=== PATIENT | female | born 1985 | race Caucasian/White ===

== ENCOUNTER 2020-12-16 00:38 | Inpatient (IN) | payer OTHER ==
[~2020-12-16] VITALS: Ht 167.6 cm; Wt 58.5 kg
--- NOTE | 2020-12-16 00:55 | NUR ---
BIBRA FROM HOME FOR C/O FEVER, CHILLS, N/V/D, BACK AND NACK PAIN AND URIANRY FREQUENCY X 3 DAYS. VACCINATED FOR COVID X 2 AND REPORTED TESTED - FOR COVID 3 DAYS AGO. AMBULATORY TO THE BATHROOM. URINE SAMPLE OBTAINED, PT WAS PLACED IN BED 7 ER, ISOLATION PRECAUTION IMPLEMENTED. PLACED PT ON MONITOR. WILL CONT TO MONITOR
[2020-12-16] MEDS ORDERED: ONDANSETRON HCL/PF 4 MG/2 ML VIAL IVP ONE (01:00)
[2020-12-16] MEDS ORDERED: IV NS 0.9% 1,000 ML BAG IV ONE (01:00)
[2020-12-16] MEDS ORDERED: KETOROLAC TROMETHAMINE INJ 30 MG/ML VIAL IV ONE (01:00)
[2020-12-16] MEDS ORDERED: KETOROLAC TROMETHAMINE INJ 30 MG/ML VIAL ONE (01:08)
[2020-12-16] MEDS ORDERED: ONDANSETRON HCL/PF 4 MG/2 ML VIAL ONE (01:08)
[2020-12-16] MEDS ORDERED: ACETAMINOPHEN ES 500 MG TABLET ONE (01:08)
[2020-12-16 01:09] LABS: BASOPHILS % (AUTO) 0.2 % (0.0-2.0); HEMATOCRIT 36 % (33-45); HEMOGLOBIN 12.3 g/dL (11.5-14.8); LYMPHOCYTES # (AUTO) 0.3 K/uL (0.8-4.8); LYMPHOCYTES % (AUTO) 1.7 % (20.0-44.0); MEAN CORPUSCULAR HGB CONC 34 g/dl (31.0-36.0); MEAN CORPUSCULAR VOLUME 92 fL (82-100); MONOCYTES # (AUTO) 1.8 K/uL (0.1-1.30); MONOCYTES % (AUTO) 9.8 % (2.0-12.0); NEUTROPHILS # (AUTO) 15.9 K/uL (1.8-8.9); NEUTROPHILS % (AUTO) 88.3 % (43.0-81.0); PLATELET COUNT (AUTO) 130 K/uL (150-450); RED BLOOD CELL COUNT(AUTO) 3.94 MIL/uL (4.0-5.2)
--- NOTE | 2020-12-16 01:10 | NUR ---
BLOOD WORK AND COVID SWABS TAKEN AND SENT TO LAB.
[2020-12-16 01:16] LABS: BILIRUBIN,URINE Negative (NEGATIVE); COLOR,URINE ORANGE (YELLOW); LEUKOCYTE ESTERASE ,URINE Negative (NEGATIVE); NITRITE, URINE Negative (NEGATIVE); PROTEIN,URINE >=300 mg/dl (NEGATIVE); UGLUCOSE Negative (NEGATIVE); UROBILINOGEN,URINE 0.2 EU/dL (0.2)
[2020-12-16 01:24] LABS: BILIRUBIN,DIRECT 0.1 mg/dL (0.0-0.2); BILIRUBIN,TOTAL 0.3 mg/dL (0.2-1.0); CALCIUM, SERUM 8.7 mg/dL (8.5-10.1); CREATININE 1.2 mg/dL (0.6-1.3); POTASSIUM 3.4 mmol/L (3.5-5.1); TOTAL PROTEIN, SERUM 7.6 g/dL (6.4-8.2)
[2020-12-16] MEDS ORDERED: ACETAMINOPHEN 325 MG TABLET PO ONE (01:30)
--- NOTE | 2020-12-16 01:30 | NUR ---
PT WENT TO CT
[2020-12-16 01:33] LABS: BACTERIA,URINE Many /HPF (None Seen); SQUAMOUS EPITHELIAL CELL,UR Few /HPF (None Seen)
--- NOTE | 2020-12-16 01:35 | NUR ---
PT BACK FROM CT
--- NOTE | 2020-12-16 02:11 | NUR ---
FLEET SALES MANAGER AT BEDSIDE FOR BLOOD CULTRES.
[2020-12-16] MEDS ORDERED: LEVOFLOXACIN 750 MG /D5W 150ML PIGGYBACK IV ONE (02:30)
--- NOTE | 2020-12-16 03:24 | NUR ---
REPORT GIVEN TO JESÚS SEBASTIAN
--- NOTE | 2020-12-16 03:51 | NUR ---
PT TRANSFERRED TO 106
[2020-12-16 04:00] VITALS: BP 94/58
[2020-12-16] MEDS ORDERED: ZOLPIDEM TARTRATE 5 MG TABLET PO PRN (04:00)
[2020-12-16] MEDS ORDERED: LEVOFLOXACIN 500 MG /D5W 100ML 500 MG in PREMIX 1 EA IV SCH (04:00)
[2020-12-16] MEDS ORDERED: ONDANSETRON HCL/PF 4 MG/2 ML VIAL IVP PRN (04:00)
[2020-12-16] MEDS ORDERED: Z GUARD REMEDY 2 OZ OINT TP PRN (04:00)
[2020-12-16] MEDS ORDERED: MAG HYDROX/AL HYDROX/SIMETH 30 ML UDC PO PRN (04:00)
[2020-12-16] MEDS ORDERED: MAGNESIUM HYDROXIDE 30 ML UDC PO PRN (04:00)
[2020-12-16] MEDS: IV NS 0.9% 1,000 ML IV PRN ×3 (04:24→16:50)
--- NOTE | 2020-12-16 06:24 | NUR ---
MS RN NOTES AWAKE & RESPONSIVE. NOT IN ANY DISTRESS. NO SOB NOTED. DENIES ANY PAIN OR DISCOMFORT AT THIS TIME. WITH IVF INFUSING WELL. MONITORED ACCORDINGLY. CALL LIGHT WITHIN REACH. BED IN LOWEST POSITION. SR UP X 2 FOR SAFETY. WILL ENDORSE TO NEXT SHIFT.
[2020-12-16] MEDS ORDERED: PANTOPRAZOLE 40 MG TABLET.DR PO SCH (07:30)
--- NOTE | 2020-12-16 07:30 | NUR ---
MS RN AM NOTES PT IN BED, AWAKE & RESPONSIVE. NOT IN ANY DISTRESS. ON ROOM AIR.NO SOB NOTED. DENIES ANY PAIN OR DISCOMFORT AT THIS TIME. WITH IVF INFUSING WELL. REGULAR DIET. BRP PRIVILEGED, CALL LIGHT WITHIN REACH. BED IN LOWEST POSITION. SR UP X 2 FOR SAFETY. POC DISCUSSED, VERBALIZED UNDERSTANDING. WILL CONTINUE TO MONITOR
[2020-12-16 08:00] VITALS: BP 92/64
[2020-12-16] MEDS ORDERED: POTASSIUM CHLORIDE 20 MEQ TAB.PRT.SR PO SCH (09:30)
--- NOTE | 2020-12-16 09:30 | NUR ---
RN NOTES DUE MEDS GIVEN
[2020-12-16 09:48] LABS: BASOPHILS % (AUTO) 0.4 % (0.0-2.0); HEMATOCRIT 34 % (33-45); HEMOGLOBIN 11.4 g/dL (11.5-14.8); LYMPHOCYTES # (AUTO) 0.6 K/uL (0.8-4.8); LYMPHOCYTES % (AUTO) 4.8 % (20.0-44.0); MEAN CORPUSCULAR HGB CONC 33 g/dl (31.0-36.0); MEAN CORPUSCULAR VOLUME 93 fL (82-100); MONOCYTES # (AUTO) 1.2 K/uL (0.1-1.30); MONOCYTES % (AUTO) 9.8 % (2.0-12.0); NEUTROPHILS # (AUTO) 10.4 K/uL (1.8-8.9); PLATELET COUNT (AUTO) 98 K/uL (150-450); RED BLOOD CELL COUNT(AUTO) 3.64 MIL/uL (4.0-5.2); WHITE BLOOD COUNT (AUTO) 12.2 K/uL (4.3-11.0)
[2020-12-16 10:28] LABS: LYMPHOCYTES % (MANUAL) 4 % (16-48); MONOCYTES % (MANUAL) 6 % (0-11.0); NEUTROPHILS % (MANUAL) 90 (42-76)
[2020-12-16] MEDS ORDERED: POTASSIUM CHLORIDE 20 MEQ TAB.PRT.SR PO ONE (11:00)
--- NOTE | 2020-12-16 13:24 | NUR ---
RN NOTES PT WITH ELEVATED TEMP AT 102.9, NAUSEOUS AND ANXIOUS. DR. LYNN NOTIFIED, JUST GIVE TYLENOL AND ZOFRAN IV. BP 106/61 O2 SAT 100%
[2020-12-16] MEDS: ACETAMINOPHEN 325 MG TABLET PO PRN (13:30)
--- NOTE | 2020-12-16 14:30 | NUR ---
RN NOTES TEMPERATURE RECHECKED, NOW 98.6. NO NAUSEA/VOMITING.
[2020-12-16 16:00] VITALS: BP 90/59
--- NOTE | 2020-12-16 18:14 | NUR ---
MS RN CLOSING NOTES PT RESTING IN BED, AWAKE & RESPONSIVE. NOT IN ANY DISTRESS. ON ROOM AIR.NO SOB NOTED. DENIES ANY PAIN OR DISCOMFORT AT THIS TIME. WITH IVF INFUSING WELL. REGULAR DIET. BRP, CALL LIGHT WITHIN REACH. BED IN LOWEST POSITION. SR UP X 2 FOR SAFETY. ALL NEEDS MET FOR NOW. SAFETY MEASURES IN PLACE, BED LOW LOCKED, ISOLATION PRECAUTIONS OBSERVED. CALL LIGHT WITHIN REACH. WILL ENDORSE TO NEXT SHIFT FOR JOCELYN.
--- NOTE | 2020-12-16 19:30 | NUR ---
RN OPENING NOTES: RECEIVED PT A/OX4 IN BED RESTING COMFORTABLY. PATIENT IN NO S/SX OF ACUTE DISTRESS AT THIS TIME. NO SOB NOTED. PATIENT'S BREATHING IS EVEN AND UNLABORED. PATIENT IS ON ROOM AIR; TOLERATING WELL WITH 02 SAT >95%. PATIENT ON REGULAR DIET; TOLERATES WELL. NOTED IV SITE ON L AC#20; PATENT, INTACT AND FLUSHING WELL; NO S/S OF INFECTION OR INFILTRATION. WITH IV FLUID RUNNING ORDERED.SAFETY MEASURES HAVE BEEN PROVIDED AND IMPLEMENTED. PATIENT BED ALARM IS ON. HEAD OF BED ELEVATED. BED IS LOCKED, IN LOWEST POSITION AND SIDE RAILS UP. CALL LIGHT WITHIN REACH OF THE PATIENT. APPLICABLE ISOLATION PRECAUTIONS IN PLACE. WILL CONTINUE TO MONITOR AND REASSESS FOR ANY CHANGES AND WILL CARRY OUT ANY ONGOING AND ACTIVE MD ORDER.
[2020-12-16 20:00] VITALS: BP 89/57
--- NOTE | 2020-12-16 20:30 | NUR ---
RN NOTES NOTED PT'S BP FOR 1999 IS AT 89/57, AND CHECKING BASELINE BP FOR TODAY PT'S SBP IS AT LOW 90s. NELSON DIAZ INFORMED AND SECURED ORDER FOR NS BOLUS 500 IV ONE TIME. BOX WORKER MADE AWARE. WILL CARRY OUT ORDERED. Addendum: 12/16/20 at 2208 by HILARIO WHIPPLE RN @2130 pt's bp is at 90/63. WILL CONTINUE TO ASSESS AND MONITOR THROUGHOUT THE SHIFT.
[2020-12-16] MEDS ORDERED: IV NS 0.9% 500 ML IV ONE (21:00)
[2020-12-16 21:30] VITALS: BP 90/63
[2020-12-17] MEDS: LEVOFLOXACIN 500 MG /D5W 100ML 500 MG in PREMIX 1 EA IV SCH (02:56)
[2020-12-17 04:00] VITALS: BP 89/57
[2020-12-17] MEDS: ACETAMINOPHEN 325 MG TABLET PO PRN ×2 (04:28→16:02)
[2020-12-17] MEDS: IV NS 0.9% 1,000 ML IV PRN ×2 (05:00→18:24)
[2020-12-17 06:01] LABS: BASOPHILS % (AUTO) 0.1 % (0.0-2.0); EOSINOPHILS % (AUTO) 0.1 % (0.0-6.0); HEMATOCRIT 31 % (33-45); HEMOGLOBIN 10.6 g/dL (11.5-14.8); LYMPHOCYTES # (AUTO) 1.1 K/uL (0.8-4.8); LYMPHOCYTES % (AUTO) 11.2 % (20.0-44.0); MEAN CORPUSCULAR HGB CONC 35 g/dl (31.0-36.0); MEAN CORPUSCULAR VOLUME 93 fL (82-100); MONOCYTES # (AUTO) 1.5 K/uL (0.1-1.30); MONOCYTES % (AUTO) 16.2 % (2.0-12.0); NEUTROPHILS # (AUTO) 6.8 K/uL (1.8-8.9); NEUTROPHILS % (AUTO) 72.4 % (43.0-81.0); PLATELET COUNT (AUTO) 100 K/uL (150-450); RED BLOOD CELL COUNT(AUTO) 3.31 MIL/uL (4.0-5.2); WHITE BLOOD COUNT (AUTO) 9.4 K/uL (4.3-11.0)
--- NOTE | 2020-12-17 06:40 | NUR ---
RN CLOSING NOTE: PATIENT REMAINS IN ROOM IN NO SIGNS OF RESPIRATORY DISTRESS, PATIENT ON ROOM AIR ;TOLERATING WELL SATURATING @ >95% SP02. SAFETY MEASURES IMPLEMENTED, BED IN LOWEST POSITION, LOCKED, SIDE RAILS UP, CALL LIGHT WITHIN REACH. ALL NEEDS AND ORDERS ADDRESSED DURING THE SHIFT. IV ACCESS MAINTAINED INTACT, SECURED AND FLUSHING WELL. ALL DUE MEDS GIVEN ORDERED & SCHEDULED ; PATIENT TOLERATED WELL. PATIENT KEPT CLEAN & COMFORTABLE WITHIN THE SHIFT. PATIENT ENDORSED TO INCOMING SHIFT RN WITH STABLE VITAL SIGN AND FOR CONTINUITY OF CARE.
[2020-12-17 06:42] LABS: CALCIUM, SERUM 7.7 mg/dL (8.5-10.1); CARBON DIOXIDE 22 mmol/L (21-32); CHLORIDE 106 mmol/L (98-107); CREATININE 0.9 mg/dL (0.6-1.3); GLUCOSE 110 mg/dL (74-106); MAGNESIUM 1.9 mg/dL (1.8-2.4); PHOSPHORUS 1.9 mg/dL (2.5-4.9); SODIUM SERUM 136 mmol/L (136-145); UREA NITROGEN, BLOOD 7 mg/dL (7-18)
[2020-12-17 06:45] LABS: CHOLESTEROL 90 mg/dL (<200); LDL 33 mg/dL (0-99); TRIGLYCERIDES 209 mg/dL (30-150)
[2020-12-17 06:48] LABS: HDL CHOLESTEROL < 10 mg/dL (40-60)
[2020-12-17 08:00] VITALS: BP 104/72
--- NOTE | 2020-12-17 09:30 | NUR ---
RN NOTES DUE MEDS GIVEN
[2020-12-17] MEDS ORDERED: K PHOS NEUTRAL 250 MG TABLET PO ONE (10:00)
[2020-12-17 11:14] LABS: LYMPHOCYTES % (MANUAL) 9 % (16-48); MONOCYTES % (MANUAL) 17 % (0-11.0); NEUTROPHILS % (MANUAL) 74 (42-76)
[2020-12-17 12:00] VITALS: BP 114/79
[2020-12-17 16:00] VITALS: BP 119/73
--- NOTE | 2020-12-17 18:38 | NUR ---
MS RN CLOSING NOTES PT RESTING IN BED, AWAKE & RESPONSIVE. NOT IN ANY DISTRESS. ON ROOM AIR.NO SOB NOTED. DENIES ANY PAIN OR DISCOMFORT AT THIS TIME. WITH IVF INFUSING WELL. REGULAR DIET. BRP, CALL LIGHT WITHIN REACH. BED IN LOWEST POSITION. SR UP X 2 FOR SAFETY. ALL NEEDS MET FOR NOW. SAFETY MEASURES IN PLACE, BED LOW LOCKED, ISOLATION PRECAUTIONS OBSERVED. CALL LIGHT WITHIN REACH. WILL ENDORSE TO NEXT SHIFT FOR JOCELYN. PATIENT WITH TEMP 99.5 EARLIER, TYLENOL GIVEN. DR. LYNN AWARE.
[2020-12-17 20:00] VITALS: BP 108/72
--- NOTE | 2020-12-17 20:00 | NUR ---
MS RN OPENING NOTES Patient is A&Ox4. VSS. Temperature at 99.2 currently -improved from past couple shifts. Patient denies nausea, vomiting , diarrhea, or abdominal pain at this time. Tolerating small bites of regular diet well. Patient reports no needs at this time. Will continue to monitor.
[2020-12-18] VITALS: BP 105/73
[2020-12-18] MEDS: LEVOFLOXACIN 500 MG /D5W 100ML 500 MG in PREMIX 1 EA IV SCH (02:03)
--- NOTE | 2020-12-18 03:15 | NUR ---
Care transferred to JESÚS Saunders. Report given. Patient A&Ox4. vss. Currently infusing IV ABX at this time -tolerating well. Denies n/v or any pain at this time.
[2020-12-18 04:00] VITALS: BP 110/69
--- NOTE | 2020-12-18 05:15 | NUR ---
RN notes Received patient from RN CECILE, in stable condition with slight elevated temperature 99.7. Cooling measures provided. Temperature last checked 99.2. Alert and oriented x 4. Verbally able to communicate needs. No significant change of condition. Kept clean and dry. Will endorse to next shift for continuity of care.
[2020-12-18 06:51] LABS: CALCIUM, SERUM 8.1 mg/dL (8.5-10.1); CREATININE 0.7 mg/dL (0.6-1.3); PHOSPHORUS 3.8 mg/dL (2.5-4.9); POTASSIUM 3.4 mmol/L (3.5-5.1)
--- NOTE | 2020-12-18 07:30 | NUR ---
RN Note: Pt received A X A X O X 4. On RA, no breathing distress noted. Denies pain & discomfort. Denies c/o N/V/D. IV cath intact, running with IV fluids as ordered. Safety measures observed. Encourage to call light for assistance. Continue to monitor.
[2020-12-18 08:00] VITALS: BP 120/81
[2020-12-18] MEDS ORDERED: POTASSIUM CHLORIDE 20 MEQ TAB.PRT.SR PO ONE (08:00)
[2020-12-18] MEDS ORDERED: POTASSIUM CHLORIDE 20 MEQ TAB.PRT.SR PO SCH (09:30)
--- NOTE | 2020-12-18 12:37 | NUR ---
RN Note: Pt discharge home alert awake ox4. On RA, No breathing distress noted. Denies pain & discomfort. Discharge instructions given to the patient. Prescriptions hand over to mother Bi Esquivel. Instruct to f/u with ID in 1 wk. Contact information provided. Pt verbalized understanding discharge instructions. IV cath removed, applied pressure dressing. Skin intact, ambulatory. Left from room with all belongings, picked up by mother Bi. Discharge in stable condition.
== END 2020-12-18 13:40 | disposition home or self-care (01) | DRG 872 ==
LOC: ER 00:43 → MEDSG1 03:17
PROVIDERS: ADMIT Internal Medicine; ATTEND Internal Medicine
DX: A41.9 Sepsis, unspecified organism (principal); N12 Tubulo-interstitial nephritis, not specified as acute or chronic; E87.1 Hypo-osmolality and hyponatremia; Z20.822 Contact with and (suspected) exposure to COVID-19; B96.89 Other specified bacterial agents as the cause of diseases classified elsewhere
CPT/HCPCS: 36415; 80048-TC; 80061-TC; 80076-TC; 81001; 83605-TC; 83690-TC; 83735-TC; 84100-TC; 84703-TC; 85025-TC; 87040-TC; 87081-TC; 87086-TC; 87186-TC; A4216; C9803; G0378; J1885; J1956; J2405; J7030; J7040; J7050; U0003